=== PATIENT | male | born 1945 | race African-American/Black ===

== ENCOUNTER 2021-01-01 16:34 | Inpatient (IN) | payer MEDICARE, OTHER ==
[~2021-01-01] VITALS: Ht 180.3 cm; Wt 71.1 kg
[2021-01-01] VITALS (7 sets, daily range): BP systolic 124–161; BP diastolic 72–89; BMI 23.1
--- NOTE | 2021-01-01 16:49 | NUR ---
1540- PT ARRIVED VIA EMS. INTUBATED WITH A 7.5 ETT, 24 @ LIP. VSS, SEE VITAL SIGN FLOWSHEET FOR DETAILS. NO SEDATION. NO CORNEAL, BABINSKY, OR GAG REFLEX PRESENT. PUPILS 2MM FIXED. NG TUBE PLACED. CONFIRMED PLACEMENT WITH AUSCULTATION. RIGHT 18G EJ NOTED, PATENT. LEFT DOMINGUEZ IO, SALINE LOCKED, PATENT. DR. SELBY AT BEDSIDE. ORDERS RECIEVED. CONSULT FOR DR. DORAN, CALLED AND ORDERS RECIEVED FOR CT HEAD AND EEG IN THE AM. STATES HE WILL SEE HIM IN THE AM. DR. SELBY STATES PT IS ANURIC, SNYDER REMOVED WITH BALLOON DEFLATED. AT BEDSIDE FOR CONSULT. NO NEW ORDERS. SCABS NOTED TO RIGHT DOMINGUEZ, OTHERWISE, NO SKIN ISSUES. RESTRAINTS PLACED - WRIST. 1615- REMOVED PIV TO RIGHT EJ, CATH TIP INTACT. CVL PLACED BY BETTY RICE. CXR OBTAINED.
[2021-01-01 16:51] LABS: HEMOGLOBIN 8.9 g/dL (13.5-17.5); MCH 30.4 pg (26.0-34.0); MCHC 30.7 g/dL (31.0-37.0); MEAN PLATELET VOLUME 10.3 fL (7.4-10.4); PLATELET COUNT 275 10x3/uL (130-400); RBC 2.93 10x6/uL (4.20-6.10); RDW 13.7 % (11.5-14.5); WBC 30.3 10x3/uL (4.8-10.8)
[2021-01-01 17:00] LABS: ANION GAP 24.6 mmol/L (8-16); CALCIUM 8.6 mg/dL (8.5-10.1); CARBON DIOXIDE 22.9 mmol/L (21.0-32.0); CREATININE - SERUM 10.4 mg/dL (0.6-1.3); POTASSIUM - SERUM 3.5 mmol/L (3.5-5.1)
[2021-01-01 17:07] LABS: ALBUMIN 2.8 g/dL (3.4-5.0); BILIRUBIN - TOTAL 0.76 mg/dL (0.2-1.3); PROTEIN - SERUM 6.5 g/dL (6.4-8.2)
[2021-01-01 17:19] LABS: EOSINOPHILS 2 % (0-7); LYMPHOCYTES 4 % (15-50); MONOCYTES 1 % (2-11); NEUTROPHILS 92 % (40-80); PLATELET ESTIMATE NORMAL
--- NOTE | 2021-01-01 22:16 | NUR ---
FAMILY AT BEDSIDE, UPDATE PROVIDED AND QUESTIONS ANSWERED.
[2021-01-02] VITALS (23 sets, daily range): BP systolic 102–171; BP diastolic 55–82; Ht 180.3 cm; Wt 71.1 kg
[2021-01-02] MEDS ORDERED: TOPROL XL100 MG (00:04)
[2021-01-02] MEDS ORDERED: PROTONIX40 MG PO (00:05)
[2021-01-02] MEDS ORDERED: HYDRALAZINE HCL50 MG PO (00:07)
[2021-01-02] MEDS ORDERED: GLUCOTROL ER2.5 MG PO (00:08)
[2021-01-02] MEDS ORDERED: ASPIRIN EC81 MG PO (00:10)
[2021-01-02] MEDS ORDERED: CLONIDINE HCL0.1 MG (00:12)
[2021-01-02] MEDS ORDERED: STOOL SOFTENER100 M1 (00:13)
[2021-01-02] MEDS ORDERED: PROCARDIA XL60 MG PO (00:14)
[2021-01-02] MEDS ORDERED: RENA-VITE TABL0.8 MG PO (00:15)
[2021-01-02] MEDS ORDERED: VELPHORO500 MG PO (00:15)
[2021-01-02] MEDS ORDERED: LIPITOR80 MG (00:17)
--- NOTE | 2021-01-02 01:30 | NUR ---
PT HAVING SEIZURE LIKE ACTIVITY FREQUENTLY, APPROXIMATELY EVERY MINUTE, 15 SECONDS IN DURATION. NEURO PAGED.
--- NOTE | 2021-01-02 01:41 | NUR ---
REC'D CALLBACK FROM DR. DORAN REGARDING SEIZURE LIKE ACTIVITY. ORDERS FOR PAULO GIVEN, SEE MAR.
--- NOTE | 2021-01-02 03:03 | NUR ---
DR. ESPINOZA GUILLEN PER ORDERS, PT CONTINUES TO HAVE SEIZURE LIKE ACTIVITY 1 HOUR POST KEPPRA INFUSION.
--- NOTE | 2021-01-02 03:10 | NUR ---
REC'D CALLBACK FROM DR. DORAN, NEW ORDERS GIVEN, SEE MAR.
[2021-01-02 04:47] LABS: BASOPHILS 0.2 % (0-2); EOSINOPHILS 0 % (0-7); HEMATOCRIT 24.3 % (42.0-54.0); HEMOGLOBIN 7.8 g/dL (13.5-17.5); IMMATURE GRANULOCYTES 0.3 % (0-5); LYMPHOCYTE ABS# 1.22 10x3/uL (1.32-3.57); LYMPHOCYTES 6.2 % (15-50); MCH 30.4 pg (26.0-34.0); MCHC 32.1 g/dL (31.0-37.0); MEAN PLATELET VOLUME 10.4 fL (7.4-10.4); MONOCYTES 4.7 % (2-11); NEUTROPHIL ABS# 17.56 10x3/uL (1.78-5.38); NEUTROPHILS 88.6 % (40-80); PLATELET COUNT 228 10x3/uL (130-400); RBC 2.57 10x6/uL (4.20-6.10); RDW 13.6 % (11.5-14.5)
[2021-01-02 05:09] LABS: ALBUMIN 2.5 g/dL (3.4-5.0); BILIRUBIN - TOTAL 0.58 mg/dL (0.2-1.3); CREATININE - SERUM 8.7 mg/dL (0.6-1.3); MAGNESIUM - SERUM 1.4 mg/dL (1.8-2.4); PHOSPHOROUS 2.3 mg/dL (2.5-4.9); POTASSIUM - SERUM 3.4 mmol/L (3.5-5.1); PROTEIN - SERUM 5.5 g/dL (6.4-8.2)
[2021-01-02 05:12] LABS: ANION GAP 14.7 mmol/L (8-16); CARBON DIOXIDE 29.7 mmol/L (21.0-32.0)
[2021-01-02 05:24] LABS: MCV 94.6 fL (80.0-100.0); WBC 19.8 10x3/uL (4.8-10.8)
--- NOTE | 2021-01-02 07:39 | NUR ---
CHANGED RR TO 12
--- NOTE | 2021-01-02 13:02 | NUR ---
DIALYSIS FROM 1030 TO 1230. 1.5 L PULLED OFF AND VS STABLE AFTER DIALYSIS. WILL CONT TO MONITOR PT
--- NOTE | 2021-01-02 20:52 | NUR ---
PT ASSESSED AND HS MEDS GIVEN. PT UNRESPONSIVE ON VENT, 7.5 ETT 25@LIP, OGT TO LIS WITH BLOODY GASTIC OUTPUT. CVL TO R IJ, LUMENS CAPPED, BLOOD RETURN POSITIVE. IO TO LEFT DOMINGUEZ BONE, REMOVED WITH TIP OF NEEDLE INTACT. CHG BATH GIVEN, GOWN AND LINENS CHANGED, PT REPOSTIONED AND ROOM CLEANED. PT FAMILY NOW AT BEDSIDE, FAMILY VOICED NO COMPLAINTS OR UNMET NEEDS.
[2021-01-03] VITALS (9 sets, daily range): BP systolic 120–166; BP diastolic 59–79
[2021-01-03 04:01] LABS: BASOPHILS 0.2 % (0-2); EOSINOPHILS 0 % (0-7); HEMATOCRIT 26.5 % (42.0-54.0); HEMOGLOBIN 8.4 g/dL (13.5-17.5); IMMATURE GRANULOCYTES 0.4 % (0-5); LYMPHOCYTES 7.2 % (15-50); MCHC 31.7 g/dL (31.0-37.0); MCV 94.6 fL (80.0-100.0); MEAN PLATELET VOLUME 10.1 fL (7.4-10.4); MONOCYTES 6.4 % (2-11); NEUTROPHIL ABS# 21.57 10x3/uL (1.78-5.38); NEUTROPHILS 85.8 % (40-80); PLATELET COUNT 248 10x3/uL (130-400); RDW 13.8 % (11.5-14.5); WBC 25.1 10x3/uL (4.8-10.8)
[2021-01-03 04:07] LABS: ALBUMIN 2.5 g/dL (3.4-5.0); ANION GAP 15.9 mmol/L (8-16); BILIRUBIN - TOTAL 0.52 mg/dL (0.2-1.3); CALCIUM 8.7 mg/dL (8.5-10.1); CARBON DIOXIDE 28.2 mmol/L (21.0-32.0); POTASSIUM - SERUM 3.1 mmol/L (3.5-5.1); PROTEIN - SERUM 6.5 g/dL (6.4-8.2); VANCOMYCIN - RANDOM 14.5 ug/mL (10.0-20.0)
[2021-01-03 04:09] LABS: MAGNESIUM - SERUM 1.8 mg/dL (1.8-2.4)
[2021-01-03 04:10] LABS: CREATININE - SERUM 11.2 mg/dL (0.6-1.3)
--- NOTE | 2021-01-03 04:53 | NUR ---
DR SELBY CALLED NURSES STATION, UPDATED ON PT CONDITION AND AM LAB RESULTS, NO ELECTROLYE PROTOCOL ORDERED AND NO NEW ORDERS RECIEVED AT THIS TIME.
--- NOTE | 2021-01-03 05:56 | NUR ---
DR VALVERDE AT BEDSIDE ONE TIME DOSE OF 20MEQ POTASSIUM IVPB ORDERED.
--- NOTE | 2021-01-03 08:30 | NUR ---
PT TERMINALLY EXTUBATED
--- NOTE | 2021-01-03 10:08 | NUR ---
PT 940. RECORD COMPLETED.
--- NOTE | 2021-01-06 16:08 | EC ---
PATIENT:SHIN MANUEL DATE OF SERVICE: 01/01/21 SEX: M MEDICAL RECORD: [id number] DATE OF : [birth year] LOCATION:[place] [id number] AGE OF PATIENT: 75 ADMISSION DATE: 01/01/21 REFERRING PHYSICIAN: INTERPRETING PHYSICIAN: ALYSSA BAUTISTA MD ECHOCARDIOGRAM REPORT ECHO CHARGES 4 ECHO COMPLETE Date: 01/02/21 CLINICAL DIAGNOSIS: CONCERNED FOR POSSIBLE DECOMPENSATED HEART FAILURE ECHOCARDIOGRAPHIC MEASUREMENTS (adult normal given) AC root (d.<3.7cm) 2.6 cm LV Septum d (<1.2 cm> 1.0 cm Valve Excursion 1.2 cm LV Septum (systole) 1.1 cm Left Atria (s.<4.0cm> 3.8 cm LVPW d(<1.2cm) 0.9 cm RV (d.<2.3cm) 2.3 cm LVPW (sytole) 1.0 cm LV diastole(<5.6CM) 6.0 cm MV E-F(>70mm/sec) cm LV systole 4.9 cm LVOT Diameter 1.8 cm MV exc.(>10mm) 1.4 cm Est.ejection fraction (50-75%) % DOPPLER: LVIT cm/sec A 94 cm/sec E 117 cm/sec LA cm/sec RVSP 34 mmHg LVOT 112 cm/sec AOP1/2T m/s Asc. Ao 127 cm/sec RVOT 76 cm/sec RA cm/sec PA 72 cm/sec AV Gradient Peak 6.4 mmHg AV Mean 3.1 mmHg AV Area 2.3 cm MV Gradient Peak 9.5 mmHg MV Mean 3.9 mmHg MV Area cm COMMENTS: Specialty Sales Representative: Sunshine MCDONOUGH Correspondence Section Supervisor: 3 Dr. Muse TAPE# Pericardial Effusion Y DATE OF SERVICE: Adequate 2D echo, color flow imaging, spectral Doppler, and M-Mode No LVH. LV internal dimensions are normal. Wall motion is normal. EF is greater than or equal to 55%. Aortic valve is tricuspid. No evidence of stenosis by Doppler interrogation. Left atrium is normal at 3.8 cm. Mitral valve shows no prolapse. Trace MR. Right-sided chamber is grossly normal. Trace TR. ECHOCARDIOGRAM REPORT [id number] SHIN MANUEL TRANSINT:[id number] Voice Confirmation ID: [id number] DOCUMENT ID: [id number] ALYSSA BAUTISTA MD at 1608 CC: [id number] DICTATION DATE: 01/03/21 1248 ROTARY DRILL OPERATOR HELPER: 01/03/21 1547 DIS IN 01/03/21 [place] [id number] [place] [address]
--- NOTE | 2021-01-06 16:33 | EEG ---
PATIENT:SHIN MANUEL MEDICAL RECORD: [id number] DATE OF : 49 LOCATION:D.231 D.ICU ADMISSION DATE: 01/01/21 REFERRING PHYSICIAN: INTERPRETING PHYSICIAN: ABILIO DORAN MD DATE OF SERVICE: 01/02/2021 DATE OF EE01/02/2021. ROOM NUMBER: [id number]. EEG ORDERED BY: Dr. Neal. CASE HISTORY: A 75-year-old male reported to suffer 2 events of cardiorespiratory arrest and CODE while en route to Center for dialysis. The patient was resuscitated after lengthy codes and subsequently has been unresponsive. Subsequently, the patient further had onset of seizures, first treated with Keppra and later with phenobarbital added with cessation of seizure. The patient is continued unresponsive off sedation. PROCEDURE: EEG done as a routine bedside portable recording using the standard 10-20 international electrode system. A 16-channel was used with 17th as EKG. Photic stimulation done as activation procedures. DESCRIPTION: EEG opens with the patient unresponsive on vent with the record displaying a burst suppression pattern with periods of markedly diminished amplitudes between bursts of high voltage theta and delta and sharps and slows. Most of these bursts of high voltage sharply contoured theta and delta and sharps and slows did not appear epileptiform. Photic stimulation did not yield a driving or photoparoxysmal response. IMPRESSION: Markedly abnormal EEG consistent with severe hypoxic cerebral insult and encephalopathy with poor prognosis. No active seizure is noted. TRANSINT:[id number] Voice Confirmation ID: [id number] DOCUMENT ID: [id number] ABILIO DORAN MD at 1633 CC: [id number] DICTATION DATE: 01/02/21 1226 BUGGY RUNNER: 01/02/21 1308 DIS IN 01/03/21 [facility] [address] [place] [address]
== END 2021-01-03 11:08 | DRG 871 ==
LOC: D.ICU 16:34
PROVIDERS: Internal Medicine Pulmonary Disease; ADMIT Internal Medicine; ATTEND Internal Medicine
PROC: 5A1945Z Respiratory Ventilation, 24-96 Consecutive Hours (ICD-10-PCS; principal; 2021-01-01)
PROC: 05HM33Z Insertion of Infusion Device into Right Internal Jugular Vein, Percutaneous Approach (ICD-10-PCS; 2021-01-01)
PROC: B543ZZA Ultrasonography of Right Jugular Veins, Guidance (ICD-10-PCS; 2021-01-01)
DX: A41.9 Sepsis, unspecified organism (principal); J96.21 Acute and chronic respiratory failure with hypoxia; J18.9 Pneumonia, unspecified organism; I50.21 Acute systolic (congestive) heart failure; N18.6 End stage renal disease; K72.00 Acute and subacute hepatic failure without coma; I13.2 Hypertensive heart and chronic kidney disease with heart failure and with stage 5 chronic kidney disease, or end stage renal disease; G93.1 Anoxic brain damage, not elsewhere classified; I46.9 Cardiac arrest, cause unspecified; E11.22 Type 2 diabetes mellitus with diabetic chronic kidney disease; Z99.2 Dependence on renal dialysis; D63.1 Anemia in chronic kidney disease; E11.51 Type 2 diabetes mellitus with diabetic peripheral angiopathy without gangrene; R56.9 Unspecified convulsions